=== PATIENT | female | born 1955 | race Two or more races ===

== ENCOUNTER 2023-08-01 22:11 | Emergency (ER) | payer OTHER ==
[~2023-08-01] VITALS: Ht 154.9 cm; Wt 60.8 kg
[~2023-08-01 22:11] MED LIST: CELEBREX200MG; CYMBALTA60 MG; METROTEXATE; NEURONTIN PO; PREDNISONE10 MG; PRILOSEC OTC20 MG; SINGULAIR10 MG; TOPROL XL25 M1; TOPROL XL25 M1 PO; XOPENEX0.63 MG/3 IH
== END 2023-08-02 04:50 ==
LOC: ER 22:11
PROVIDERS: Emergency Medicine
DX: J44.1 Chronic obstructive pulmonary disease with (acute) exacerbation (principal); Z91.040 Latex allergy status; Z88.2 Allergy status to sulfonamides; G30.8 Other Alzheimer's disease; F02.80 Dementia in other diseases classified elsewhere, unspecified severity, without behavioral disturbance, psychotic disturbance, mood disturbance, and anxiety; E11.9 Type 2 diabetes mellitus without complications; R50.9 Fever, unspecified; Z20.822 Contact with and (suspected) exposure to COVID-19